=== PATIENT | female | born 1950 | race Caucasian/White ===

== ENCOUNTER 2018-01-24 10:06 | Outpatient (CLI) | payer MEDICARE ==
--- NOTE | 2018-01-24 17:26 | MMO ---
BILATERAL SCREENING MAMMOGRAM: Date: 01/24/18 HISTORY: 67-year-old female. Routine screening mammography. COMPARISON: 07/28/10, 07/02/14, 12/31/16. TECHNIQUE: CC and MLO views of both breasts are submitted for interpretation. This patient's mammogram was reviewed with the assistance of computer-aided detection. FINDINGS: In the left breast, no suspicious dominant mass, architectural distortion, or suspicious calcificatio ns. There is a benign-appearing calcification are present. In the right breast, there is a focal asymmetry in the upper breast, only appreciated on the MLO proj ection. IMPRESSION: BIRADS 0: Incomplete: Need Additional Imaging Evaluation and/or Prior Mammograms for Comparison RECOMMENDATION: Spot view of the right breast in the MLO projection, along with a mediolateral view. Ultrasound shoul d be performed if focal asymmetry persists. The facility will notify patient of need for additional imaging services. POS: [place]
== END 2018-01-24 10:07 | disposition home or self-care (01) ==
LOC: SCSMAMMO 10:06
PROVIDERS: ATTEND Family Medicine
DX: Z12.31 Encounter for screening mammogram for malignant neoplasm of breast (principal)
CPT/HCPCS: 77067

== ENCOUNTER 2018-01-31 12:40 | Outpatient (CLI) | payer MEDICARE ==
--- NOTE | 2018-01-31 14:46 | ULT ---
RIGHT BREAST ULTRASOUND: History: Nodular density seen on recent mammogram at the 12 o'clock position of the right breast. FINDINGS: Real-time imaging of the area of concern shows a 4-5 mm cyst that has a thin internal septation. No a bnormal vascular flow is seen. IMPRESSION: BIRADS category 2 - benign findings. Routine mammographic follow up is recommended. POS: OFF
== END 2018-01-31 12:41 | disposition home or self-care (01) ==
LOC: BICMAMMO 12:40
PROVIDERS: ATTEND Family Medicine
DX: R92.2 Inconclusive mammogram (principal); N63.11 Unspecified lump in the right breast, upper outer quadrant
CPT/HCPCS: 76642; 77065; G0279

== ENCOUNTER 2019-01-25 12:50 | Outpatient (CLI) | payer MEDICARE ==
--- NOTE | 2019-01-25 15:39 | MMO ---
Bilateral MAMMO Bilat Screen [facility]. CLINICAL HISTORY: Patient is 68 years old and is seen for screening. The patient has no family history of breast cancer. The patient has no personal history of cancer. VIEWS: The views performed were: bilateral craniocaudal with tomosynthesis and bilateral mediolateral oblique with tomosynthesis. FILMS COMPARED: The present examination has been compared to prior imaging studies performed at [facility] on 01/24/2018, and at [facility] on 07/02/2014, 12/31/2016 and 01/31/2018. This study has been interpreted with the assistance of computer-aided detection. MAMMOGRAM FINDINGS: There are scattered fibroglandular densities. There are no suspicious masses, suspicious calcifications, or new areas of architectural distortion. IMPRESSION: THERE IS NO MAMMOGRAPHIC EVIDENCE OF MALIGNANCY. A ROUTINE FOLLOW-UP MAMMOGRAM IN 1 YEAR IS RECOMMENDED. THE RESULTS OF THIS EXAM WERE SENT TO THE PATIENT. ACR BI-RADS Category 1 - Negative MAMMOGRAPHY NOTE: 1. A negative mammogram report should not delay a biopsy if a dominant of clinically suspicious mass is present. 2. Approximately 10% to 15% of breast cancers are not detected by mammography. 3. Adenosis and dense breasts may obscure an underlying neoplasm. Reported by: VISHNU ANSARI MD Electonically Signed: [id number]
== END 2019-01-25 12:51 | disposition home or self-care (01) ==
LOC: BICMAMMO 12:50
PROVIDERS: ATTEND Family Medicine
DX: Z12.31 Encounter for screening mammogram for malignant neoplasm of breast (principal)
CPT/HCPCS: 77063; 77067

== ENCOUNTER 2020-01-28 10:36 | Outpatient (CLI) | payer MEDICARE ==
--- NOTE | 2020-01-28 13:50 | MMO ---
Bilateral MAMMO Bilat Screen [facility]. CLINICAL HISTORY: Patient is 69 years old and is seen for screening. The patient has no family history of breast cancer. The patient has no personal history of cancer. VIEWS: The views performed were: bilateral craniocaudal with tomosynthesis and bilateral mediolateral oblique with tomosynthesis. FILMS COMPARED: The present examination has been compared to prior imaging studies performed at [facility] on 01/24/2018, and at [facility] on 12/31/2016, 01/31/2018 and 01/25/2019. This study has been interpreted with the assistance of computer-aided detection. MAMMOGRAM FINDINGS: There are scattered fibroglandular densities. Benign calcifications are noted bilaterally. There are no suspicious masses, suspicious calcifications, or new areas of architectural distortion. IMPRESSION: THERE IS NO MAMMOGRAPHIC EVIDENCE OF MALIGNANCY. A ROUTINE FOLLOW-UP MAMMOGRAM IN 1 YEAR IS RECOMMENDED. THE RESULTS OF THIS EXAM WERE SENT TO THE PATIENT. ACR BI-RADS Category 2 - Benign finding MAMMOGRAPHY NOTE: 1. A negative mammogram report should not delay a biopsy if a dominant of clinically suspicious mass is present. 2. Approximately 10% to 15% of breast cancers are not detected by mammography. 3. Adenosis and dense breasts may obscure an underlying neoplasm. Reported by: MANJEET MCINTYRE MD Electonically Signed: [id number]
== END 2020-01-28 10:37 | disposition home or self-care (01) ==
LOC: BICMAMMO 10:36
PROVIDERS: ATTEND Family Medicine
DX: Z12.31 Encounter for screening mammogram for malignant neoplasm of breast (principal)
CPT/HCPCS: 77063; 77067

== ENCOUNTER 2020-03-06 08:05 | Day surgery (SDC) | payer MEDICARE ==
[2020-03-05 16:09] VITALS: BMI 24.2
[~2020-03-06 08:05] MED LIST: Cyclopentolate 1% Opth Drop 2 ML BOT FS SCH; Fentanyl 100 MCG/2 ML VIAL ONE; Fluorouracil 100 MG, Enoxaparin Sodium 25 MG, EPINEPHrine 0.3 MG in Ophthalmic Irrigati... IRR SCH; Midazolam HCl 2 mg/2 ml Vial ONE; Phenylephrine 2.5% Ophth Soln 5 ML BOT FS SCH
[2020-03-06] MEDS ORDERED: PROPOFOL 200 MG/20 ML VIAL ONE (09:08)
[2020-03-06] MEDS ORDERED: Lidocaine 1% PF 5 ML VIAL ONE (09:08)
[2020-03-06] MEDS ORDERED: CEFAZOLIN 1 GM VIAL ONE (09:08)
[2020-03-06] MEDS ORDERED: Maxitrol 0.1% Opth Oint 3.5 GM TUBE ONE (09:08)
[2020-03-06] MEDS ORDERED: Triamcinolone 40 MG/ML VIAL ONE (09:08)
[2020-03-06] MEDS ORDERED: Bupivacaine PF 0.75% SDV 10 ML ONE (09:08)
[2020-03-06] MEDS ORDERED: Lidocaine 4% PF 5 ML AMP ONE (09:08)
[2020-03-06] MEDS ORDERED: Cyclopentolate HCl 1% 5 ML BOT ONE (09:20)
[2020-03-06] MEDS ORDERED: Phenylephrine 2.5% Ophth Soln 5 ML BOT ONE (09:20)
--- NOTE | 2020-03-13 00:10 | OP ---
DATE OF PROCEDURE: 03/06/2020 PREOPERATIVE DIAGNOSIS: Rhegmatogenous retinal detachment, left eye. POSTOPERATIVE DIAGNOSIS: Rhegmatogenous retinal detachment, left eye. PROCEDURE: Pars plana vitrectomy, retinal detachment repair, left eye. ANESTHESIA: Local with monitored anesthesia care. DESCRIPTION OF PROCEDURE: The patient was identified in the preoperative holding area. Appropriate informed consent for the planned surgical procedure on the left eye had been obtained. The patient was transported to the operative suite. Appropriate cardiopulmonary monitoring was established. Local anesthesia was obtained using retrobulbar modified Van Lint lid block using 50:50 mixture of 4% lidocaine and 0.75% bupivacaine. The patient was prepped and draped in usual sterile manner for ophthalmic surgery on the left eye. Lid speculum was placed on the left eye. A 25-gauge trocar was placed through conjunctiva and sclera superotemporally, inferotemporally, and supranasally. Infusion line was placed inferotemporally. Light pipe vitreous cutter was inserted into the eye. Core vitrectomy was performed. Attention was turned to the superior break. Traction was removed from the superior tear. The posterior drained retinotomy was created. Complete air-fluid exchange was performed with 10 minutes being allowed for fluid to drain posteriorly. Superior barricade laser was placed using Endolaser delivery device. 28% sulfur hexafluoride gas was infused into the eye. Trocars were removed and the eye was noted to retain pressure well. Retrobulbar Kenalog and subconjunctival Ancef were placed. Antibiotic ointment was placed. The eye was patched and shielded. The patient was taken to postop recovery unit in good condition, having suffered no immediate perioperative complications. The patient was instructed to keep patch and shield on, position left side down. Followup appointment with Dr. Aly. Job ID: [id number]
== END 2020-03-06 13:45 | disposition home or self-care (01) ==
LOC: SDC 08:05
PROVIDERS: ATTEND Ophthalmology Retina Specialist
PROC: 08T53ZZ Resection of Left Vitreous, Percutaneous Approach (ICD-10-PCS; principal; 2020-03-06)
DX: H33.012 Retinal detachment with single break, left eye (principal); Z79.899 Other long term (current) drug therapy
CPT/HCPCS: 67025; J0171; J0690; J1650; J2250; J2704; J3010; J3301; J3490; J9190

== ENCOUNTER 2021-01-29 11:05 | Outpatient (CLI) | payer MEDICARE | END 2021-01-29 11:06 | disposition home or self-care (01) | LOC: BICMAMMO 11:05 | PROVIDERS: ATTEND Family Medicine | DX: Z12.31 Encounter for screening mammogram for malignant neoplasm of breast (principal) | CPT/HCPCS: 77063; 77067 ==

== ENCOUNTER 2022-02-01 09:52 | Outpatient (CLI) | payer MEDICARE | END 2022-02-01 09:53 | disposition home or self-care (01) | LOC: BICMAMMO 09:52 | PROVIDERS: ATTEND Family Medicine | DX: Z12.31 Encounter for screening mammogram for malignant neoplasm of breast (principal); M81.0 Age-related osteoporosis without current pathological fracture; M85.852 Other specified disorders of bone density and structure, left thigh | CPT/HCPCS: 77063; 77067; 77080 ==

== ENCOUNTER 2023-02-02 10:13 | Outpatient (CLI) | payer MEDICARE | END 2023-02-02 10:14 | disposition home or self-care (01) | LOC: BICMAMMO 10:13 | PROVIDERS: ATTEND Family Medicine Sports Medicine | DX: Z12.31 Encounter for screening mammogram for malignant neoplasm of breast (principal) | CPT/HCPCS: 77063; 77067 ==

== ENCOUNTER 2024-02-06 09:45 | Outpatient (CLI) | payer MEDICARE | END 2024-02-06 09:46 | disposition home or self-care (01) | LOC: BICMAMMO 09:45 | PROVIDERS: ATTEND Physician Assistant | DX: Z12.31 Encounter for screening mammogram for malignant neoplasm of breast (principal) | CPT/HCPCS: 77063; 77067 ==